=== PATIENT | male | born 1995 | race African-American/Black ===

== ENCOUNTER 2020-09-20 13:45 | Emergency (ER) | payer OTHER ==
[2020-09-20 14:05] VITALS: BP 148/81; PULSE 65; TEMP 97.7; BMI 30.2
== END 2020-09-20 14:57 | disposition home or self-care (01) ==
LOC: JERFT 13:45
DX: T59.91XA Toxic effect of unspecified gases, fumes and vapors, accidental (unintentional), initial encounter (principal); Z77.098 Contact with and (suspected) exposure to other hazardous, chiefly nonmedicinal, chemicals
CPT/HCPCS: 99281-25

== ENCOUNTER 2021-09-15 13:51 | Emergency (ER) | payer OTHER ==
[2021-09-15 14:30] VITALS: BP 122/86; PULSE 77; TEMP 97.5; BMI 32.7
[2021-09-15] MEDS ORDERED: IBUPROFEN 600 MG TABLET (FP) PO ONE ×2 (14:50→14:56)
[2021-09-15] MEDS ORDERED: LIDOCAINE 5% TOPICAL PATCH TP ONE (14:50)
[2021-09-15] MEDS ORDERED: LIDOCAINE 5% TOPICAL PATCH ONE (14:56)
== END 2021-09-15 15:26 | disposition home or self-care (01) ==
LOC: JERFT 13:51 → JER 13:51 → JERFT 15:26
DX: S39.012A Strain of muscle, fascia and tendon of lower back, initial encounter (principal); X50.0XXA Overexertion from strenuous movement or load, initial encounter
CPT/HCPCS: 99283-25